=== PATIENT | male | born 1945 | race Asian ===

== ENCOUNTER → 2024-09-06 | Outpatient (CLI) | payer MEDICARE, MEDICAID ==
[~2024-09-06] VITALS: Ht 172.7 cm; Wt 93.0 kg
[2024-09-06] MEDS: ADENOSINE 78 MG in GIVE UN-DILUTED 0 ML IV STA (10:43)
--- NOTE | 2024-09-06 14:13 | DVHSR ---
APPROVED REPORT Exam: Nuclear Stress Test BMI: 0 Stress Test Details HR Max Heart Rate (APMHR): 140.820151 bpm Target HR (85% APMHR): 119.769457 bpm BP ECG Stress ECG Conclusion This is heterogenous area of reduced uptake during stress images involving the anterior anterior sept al as well as inferior wall could represent multivessel ischemia. Moderately reduced left ventricular systolic function 49%. Impression: Multiple area of possible ischemia likely representing three-vessel disease, moderately reduced left ventricular systolic function, moderate to high-risk study. NM EXAM: Myocardial Perfusion REST/STRESS Imaging Protocol: Rest Tc-99m/Stress Tc-99m 1 day Resting Data Rest SPECT myocardial perfusion imaging was performed in supine position 60 minutes following the int ravenous injection of 14 mCi of Tc-99m Sestamibi. Time of rest injection: 0940 Time of rest imagin Administration Route: IV Administration Site: Left Arm Pharmacologic Stress Pharmacologic stress test was performed by injecting Adenosine mg IV push followed by the intravenou s injection of 32.4 mCi of Tc-99m Sestamibi. Time of stress injection: 1052 Time of stress imagin Administration Route: IV Administration Site: Left Arm The images were gated to evaluate regional wall motion and calculate left ventricular ejection fracti on. Stress only was performed in the Supine position. Nuclear Conclusion ECG Findings: negative for ischemia Clinical Findings: negative for ischemia Nuclear Findings: positive for ischemia Exercise Capacity: not assessed Left Ventricular Function: abnormal Risk Study: high This is heterogenous area of reduced uptake during stress images involving the anterior anterior sept al as well as inferior wall could represent multivessel ischemia. Moderately reduced left ventricular systolic function 49%. Impression: Multiple area of possible ischemia likely representing three-vessel disease, moderately reduced left ventricular systolic function, moderate to high-risk study.
== END | disposition home or self-care (01) ==
LOC: XYW 09:32
PROVIDERS: ATTEND Specialist
DX: I99.8 Other disorder of circulatory system (principal); I10 Essential (primary) hypertension; R00.2 Palpitations; R06.02 Shortness of breath; I48.91 Unspecified atrial fibrillation
CPT/HCPCS: 78452; 93017; A9500; J0153